=== PATIENT | female | born 1990 | race American Indian/Alaskan Native ===

== ENCOUNTER 2019-01-21 19:50 | Emergency (ER) | payer SELFPAY ==
--- NOTE | 2019-01-21 20:25 | Emergency Department Report ---
Blank Doc - Documentation Documentation: 28-year-old female that presents with left arm pain and redness. Stated is not UTD with tetanus. This initial assessment/diagnostic orders/clinical plan/treatment(s) is/are subject to change based on patient's health status, clinical progression and re- assessment by fellow clinical providers in the ED. Further treatment and workup at subsequent clinical providers discretion. Patient/guardians urged not to elope from the ED as their condition may be serious if not clinically assessed and managed. Initial orders include: 1- Patient sent to [facility] for further evaluation and treatment
[2019-01-21 20:31] VITALS: BP 123/77
[2019-01-21] MEDS ORDERED: DELTASONE PO ONE (21:40)
--- NOTE | 2019-01-21 21:44 | Emergency Department Report ---
ED Rash HPI - HPI Chief Complaint: Extremity Injury, Upper Stated Complaint: INSECT BITE ON LT ARM Time Seen by Provider: 01/21/19 20:24 Duration: 1 Day Location: Upper Extremities Rash Symptoms: Yes Itching, No Facial Swelling, No Tongue/Oral Swelling, No Breathing Difficulties, No Choking Sensation, No Wheezing/Dyspnea, No Peeling, No Blistering, No Fever, No Lightheaded, No Malaise, No Myalgias Severity: mild Other History: 28 yo with insect bite to lue. co redness and swelling. white head noted. no necrosis. neurovasc intact ED Review of Systems ROS: Stated complaint: INSECT BITE ON LT ARM Other details as noted in HPI Comment: All other systems reviewed and negative ED Past Medical Hx - Past Medical History Previous Medical History?: No - Surgical History Past Surgical History?: No - Social History Smoking Status: Never Smoker Substance Use Type: None - Medications Home Medications: Home Medications Medication Instructions Recorded Confirmed Last Taken Type Cetirizine HCl [ZyrTEC] 10 mg PO DAILY #30 capsule 01/21/19 Unknown Rx diphenhydrAMINE [Benadryl CAP] 25 mg PO Q8HR PRN #20 capsule 01/21/19 Unknown Rx predniSONE [Deltasone] 20 mg PO DAILY #5 tablet 01/21/19 Unknown Rx Rash Exam - Exam General: Vital signs noted. No distress. Alert and acting appropriately. HEENT: No Periorbital Edema, No Conjuctival Injection Lungs: Yes Good Air Exchange, No Wheezes, No Ronchi, No Stridor, No Cough Heart: Yes Regular, No Murmur Skin: Yes Erythema, No Urticarial Rash, No Maculopapular Rash, No Morbilliform rash, No Bulla(e), No Excoriations, No Weeping, No Tenderness, No Edema, No Encrustations Other: Positive: Abdomen Normal, Neurologic Normal, Musculoskeletal Normal ED Course Vital Signs 01/21/19 01/21/19 20:15 20:30 Temperature 98.4 F 98.6 F Pulse Rate 75 74 Respiratory 16 18 Rate Blood Pressure 107/70 123/77 O2 Sat by Pulse 94 100 Oximetry ED Medical Decision Making - Medical Decision Making no abscess no cellulitic on exam local reaction to insect bite of ? type radial and ulnar pulse normal rapid cap refill medicated in er tdap given dc home with dc plan of care Vital Signs 01/21/19 01/21/19 20:15 20:30 Temperature 98.4 F 98.6 F Pulse Rate 75 74 Respiratory 16 18 Rate Blood Pressure 107/70 123/77 O2 Sat by Pulse 94 100 Oximetry - Differential Diagnosis local reaction/ cellulitis/ abscess Critical care attestation.: If time is entered above; I have spent that time in minutes in the direct care of this critically ill patient, excluding procedure time. ED Disposition Clinical Impression: Insect bite Disposition: DC-01 TO HOME OR SELFCARE Is pt being admited?: No Does the pt Need Aspirin: No Condition: Stable Instructions: Insect Bite or Sting (ED) Additional Instructions: meds as ordered warm compresses follow up with pcp referral below Referrals: LYLE DIEGO MD [Staff Physician] - 3-5 Days Time of Disposition: 21:43
[2019-01-21] MEDS ORDERED: TENIVAC IM ONE (22:00)
== END 2019-01-21 22:11 | disposition home or self-care (01) ==
LOC: ED 19:50
DX: S41.152A Open bite of left upper arm, initial encounter (principal); Z79.899 Other long term (current) drug therapy; W57.XXXA Bitten or stung by nonvenomous insect and other nonvenomous arthropods, initial encounter; Y93.89 Activity, other specified; Y92.89 Other specified places as the place of occurrence of the external cause; Y99.8 Other external cause status
CPT/HCPCS: 90471; 90714; 99282; J7512; 96372